=== PATIENT | female | born 1960 | race Native Hawaiian/Other Pacific Islander ===

== ENCOUNTER 2017-09-07 12:53 | Outpatient (CLI) | payer OTHER | END 2017-09-07 20:26 | disposition home or self-care (01) | LOC: MAMMO 12:53 | DX: Z12.31 Encounter for screening mammogram for malignant neoplasm of breast (principal) ==

== ENCOUNTER 2017-09-15 13:01 | Outpatient (CLI) | payer OTHER | END 2017-09-15 21:49 | disposition home or self-care (01) | LOC: MAMMO 13:01 | DX: R92.2 Inconclusive mammogram (principal) ==